=== PATIENT | male | born 1955 | race Caucasian/White ===

== ENCOUNTER → 2020-03-31 07:20 | Outpatient (CLI) | payer MEDICARE, SELFPAY ==
--- NOTE | 2020-03-31 07:23 | DI.RAD.S_ITS ---
PROCEDURE: XR LUMBAR SPINE MIN 4V INDICATIONS: LBP TECHNIQUE: 5 views of the lumbar spine were acquired. COMPARISON: [facility] [place], [place], SPINE LUMB MIN 4VW, 09/07/2016, 9:33. FINDINGS: Bones: 5 nonrib-bearing vertebrae are present. There is normal bony alignment. No vertebral body compression fractures. No suspicious bony lesions. Moderate degenerative disc changes noted throughout the lumbar spine. Moderate L4-L5 and L5-S1 facet arthropathy. Soft tissues: Overlying bowel gas pattern is normal. No suspicious soft tissue calcifications. Oblique images: No pars defects. IMPRESSION: 1. Multilevel degenerative disease. 2. Multilevel facet arthropathy. 3. No fracture. No acute osseous lesion. If symptoms and/or clinical suspicion for pathology persists, evaluation with MRI may be helpful for further assessment. Dictated by: Trena Chappell MD, PhD on 03/31/2020 at 17:38 Approved by: Trena Chappell MD, PhD on 03/31/2020 at 17:39
== END ==
PROVIDERS: PCP Family Medicine; Referring Provider Physical Medicine & Rehabilitation; Visit Provider Physical Medicine & Rehabilitation
DX: M54.5 Low back pain (principal); M51.16 Intervertebral disc disorders with radiculopathy, lumbar region; M47.26 Other spondylosis with radiculopathy, lumbar region; M47.27 Other spondylosis with radiculopathy, lumbosacral region; Z86.718 Personal history of other venous thrombosis and embolism; Z89.612 Acquired absence of left leg above knee
CPT/HCPCS: 72110; 99214

== ENCOUNTER → 2020-04-26 08:25 | Outpatient (CLI) | payer MEDICARE, SELFPAY ==
[2020-04-27 20:10] LABS: COVID19 Sendout Not Detected (Not Detect)
== END ==
PROVIDERS: PCP Family Medicine; Visit Provider Physician Assistant
DX: Z11.59 Encounter for screening for other viral diseases (principal)
CPT/HCPCS: 87635

== ENCOUNTER 2020-04-29 09:19 | Outpatient (CLI) | payer MEDICARE, SELFPAY ==
[2020-04-29] VITALS (7 sets, daily range): BP systolic 129–170; BP diastolic 85–99; PULSE 75–82; RESP 18–20; TEMP 36.4; O2SAT 96–98
--- NOTE | 2020-04-29 09:20 | DI.RAD.S_ITS ---
PROCEDURE: PAIN L/S FACET INJ/BLK 1ST PEDRO COMPARISON: None. INDICATIONS: SPONDYLOSIS FINDINGS: Needle tip localization has been performed for bilateral medial branch block procedures at L4, L5, and S1. Six total levels. IMPRESSION: 6 level needle tip localization procedures for 6 separate medial branch block procedures. Dictated by: Derik Aranda M.D. on 04/29/2020 at 12:09 Approved by: Derik Aranda M.D. on 04/29/2020 at 12:10
--- NOTE | 2020-04-29 09:51 | PC.NURSE ---
No IV needed per Dr. Collins and patient
[2020-04-29] MEDS: LIDOCAINE 1% 20 ML 10 ML INJ (10:38)
[2020-04-29] MEDS: BUPIVACAINE 0.5% (PF) VIAL 5 ML INJ (10:38)
[2020-04-29] MEDS: IOPAMIDOL 15 ML VIAL 3 ML INJ (10:38)
--- NOTE | 2020-04-29 10:47 | P.PCN_ITS ---
Date/Time/Diagnoses Date of procedure: 04/29/20 Time of procedure: 10:47 Pre-procedure diagnosis: 1. FACET ARTHROPATHY Post-procedure diagnosis: same Procedure Notes Procedure: 1. BILATERAL- L4, L5 and S1 DIAGNOSTIC MB BLOCKS with LA Anesthetic Indications: Jarod is referred by Dr. Alvarado for treatment of Bilateral Axial LBP. Physician: Victor Hugo Collins Total Fluoroscopy time (seconds): 14 Total sedation minutes: 0 Complications: none Procedure in detail & Post-procedure care: DESCRIPTION OF PROCEDURE Fluoroscopically guided, contrast-controlled bilateral L4, L5 and S1 medial branch blocks with 0.5cc of 0.5% Marcaine. Following review of allergy and review of potential side effects and complications, including, but not necessarily limited to, infection, allergic reaction, local tissue breakdown, nerve injury, paralysis, stroke and possible , the patient indicated that the patient understood and agreed to proceed. An informed consent document was signed by the patient, witnessed by a nurse, and placed in the patient's chart. After review of previous anaesthesic history and IV conscious sedation the patient was deemed safe to proceed with today's procedure with IV conscious sedation as ASA class II designation. Safety time-out was performed to confirm patient ID, procedure to be performed and site of procedure. IV sedation was deemed unnecessary and thus not administered by the RN after DO order, titrated to patient comfort during the course of the procedure while the patient remained responsive to all verbal commands In the prone position, following sterile prep and drape of the lumbar region, the right L4, L5 and S1 anatomical location of the medial branch of the dorsal ramus was identified fluoroscopically. Subsequently an anesthetic skin wheal using 1% lidocaine solution was initiated at each of the anatomical spots. Subsequently then a 22-gauge 3.5-inch spinal needle was atraumatically introduced and advanced under fluoroscopic guidance at each of the corresponding sites at the right L4, L5 and S1 MB. After negative aspiration, 0.2cc of Isovue 200 was injected, confirming placement without vascular or intrathecal uptake. Subsequently then 0.5cc of 0.5% Marcaine solution was injected at each of the corresponding sites at the right L4, L5 and S1 medial branch locations. The identical procedure was replicated on the left. The patient tolerated the procedure well without signs or symptoms of complications prior to transfer to the recovery area continued monitoring without incident. Post-procedure, the patient was monitored initiating provocative activities to measure the amount of relief from block of the facetogenic pain. The patient reported a VAS of 7 prior to the procedure and a post-procedure VAS of 1. It has been a pleasure to assist in the diagnostic and therapeutic care of your patient. POST OP INSTRUCTIONS The patient was provided with a Pain Log to complete over the next several hours and subsequent days prior to the patient's follow up with the ordering physician. If the patient has painter interior finish relief to the solution applied, then they may be a candidate for medial branch rhizotomy. The patient is aware, was provided, once again, with a Pain Log and will follow up with the referring physician for review and clinical correlation
--- NOTE | 2020-04-29 15:42 | PC.NURSE ---
Fentanyl and versed given by this RN all other meds scanned given by Dr Collins. Patient was stable and transferred to [facility].
== END 2020-04-29 10:54 | disposition home or self-care (01) ==
LOC: RAD 09:20
PROVIDERS: PCP Family Medicine; Referring Provider Family Medicine; Visit Provider Physical Medicine & Rehabilitation
DX: M47.816 Spondylosis without myelopathy or radiculopathy, lumbar region (principal); M47.817 Spondylosis without myelopathy or radiculopathy, lumbosacral region; M54.5 Low back pain
CPT/HCPCS: 64493; 64494; J2250; J3010